=== PATIENT | female | born 1940 | race American Indian/Alaskan Native ===

== ENCOUNTER 2017-04-17 10:53 | Outpatient (CLI) | payer MEDICARE ==
[2017-04-17] MEDS ORDERED: XYLOCAINE TOPICAL 4% TP ONE ×3 (12:19→12:57)
[2017-04-17] MEDS ORDERED: XYLOCAINE 1% 20 mL ONE (12:49)
== END 2017-04-17 10:54 | disposition home or self-care (01) ==
LOC: WOUND 10:53
PROVIDERS: ATTEND Nurse Practitioner
DX: I87.313 Chronic venous hypertension (idiopathic) with ulcer of bilateral lower extremity (principal); L97.321 Non-pressure chronic ulcer of left ankle limited to breakdown of skin; L97.311 Non-pressure chronic ulcer of right ankle limited to breakdown of skin; I70.213 Atherosclerosis of native arteries of extremities with intermittent claudication, bilateral legs; Z90.710 Acquired absence of both cervix and uterus; Z98.62 Peripheral vascular angioplasty status; Z85.9 Personal history of malignant neoplasm, unspecified; Z87.891 Personal history of nicotine dependence
CPT/HCPCS: 11042; 11045; G0463

== ENCOUNTER 2017-04-24 08:03 | Outpatient (CLI) | payer MEDICARE | END 2017-04-24 08:04 | disposition home or self-care (01) | LOC: WOUND 08:03 | PROVIDERS: ATTEND Surgery | DX: I87.2 Venous insufficiency (chronic) (peripheral) (principal); L97.321 Non-pressure chronic ulcer of left ankle limited to breakdown of skin; L97.311 Non-pressure chronic ulcer of right ankle limited to breakdown of skin; I10 Essential (primary) hypertension; Z85.828 Personal history of other malignant neoplasm of skin; Z87.891 Personal history of nicotine dependence; Z90.710 Acquired absence of both cervix and uterus; Z98.62 Peripheral vascular angioplasty status | CPT/HCPCS: 29580 ==

== ENCOUNTER 2017-05-01 08:02 | Outpatient (CLI) | payer MEDICARE ==
[2017-05-01] MEDS ORDERED: XYLOCAINE TOPICAL 4% TP ONE ×2 (08:49→08:57)
== END 2017-05-01 08:03 | disposition home or self-care (01) ==
LOC: WOUND 08:02
PROVIDERS: ATTEND Nurse Practitioner
DX: I87.313 Chronic venous hypertension (idiopathic) with ulcer of bilateral lower extremity (principal); I70.213 Atherosclerosis of native arteries of extremities with intermittent claudication, bilateral legs; L97.321 Non-pressure chronic ulcer of left ankle limited to breakdown of skin; L97.311 Non-pressure chronic ulcer of right ankle limited to breakdown of skin; Z85.9 Personal history of malignant neoplasm, unspecified; Z90.710 Acquired absence of both cervix and uterus; Z98.62 Peripheral vascular angioplasty status; Z87.891 Personal history of nicotine dependence

== ENCOUNTER 2017-05-08 08:26 | Outpatient (CLI) | payer MEDICARE ==
[2017-05-08] MEDS ORDERED: XYLOCAINE TOPICAL 4% TP ONE ×2 (09:09→09:11)
[2017-05-08] MEDS ORDERED: XYLOCAINE TOPICAL 2% TP ONE (09:11)
== END 2017-05-08 08:27 | disposition home or self-care (01) ==
LOC: WOUND 08:26
PROVIDERS: ATTEND Nurse Practitioner
DX: I87.313 Chronic venous hypertension (idiopathic) with ulcer of bilateral lower extremity (principal); L97.321 Non-pressure chronic ulcer of left ankle limited to breakdown of skin; L97.311 Non-pressure chronic ulcer of right ankle limited to breakdown of skin; I70.213 Atherosclerosis of native arteries of extremities with intermittent claudication, bilateral legs; Z85.9 Personal history of malignant neoplasm, unspecified; Z90.710 Acquired absence of both cervix and uterus; Z98.62 Peripheral vascular angioplasty status

== ENCOUNTER 2017-05-15 08:44 | Outpatient (CLI) | payer MEDICARE ==
[2017-05-15] MEDS ORDERED: XYLOCAINE TOPICAL 4% TP ONE (09:18)
== END 2017-05-15 08:45 | disposition home or self-care (01) ==
LOC: WOUND 08:44
PROVIDERS: ATTEND Nurse Practitioner
DX: I87.313 Chronic venous hypertension (idiopathic) with ulcer of bilateral lower extremity (principal); L97.321 Non-pressure chronic ulcer of left ankle limited to breakdown of skin; L97.311 Non-pressure chronic ulcer of right ankle limited to breakdown of skin; L84 Corns and callosities; M79.671 Pain in right foot; Z85.9 Personal history of malignant neoplasm, unspecified; Z90.710 Acquired absence of both cervix and uterus; Z98.62 Peripheral vascular angioplasty status
CPT/HCPCS: 11055

== ENCOUNTER 2017-05-22 07:55 | Outpatient (CLI) | payer MEDICARE ==
[2017-05-22] MEDS ORDERED: XYLOCAINE TOPICAL 4% TP ONE ×3 (08:34→09:15)
== END 2017-05-22 07:56 | disposition home or self-care (01) ==
LOC: WOUND 07:55
PROVIDERS: ATTEND Nurse Practitioner
DX: I87.313 Chronic venous hypertension (idiopathic) with ulcer of bilateral lower extremity (principal); L97.321 Non-pressure chronic ulcer of left ankle limited to breakdown of skin; L97.311 Non-pressure chronic ulcer of right ankle limited to breakdown of skin; I70.213 Atherosclerosis of native arteries of extremities with intermittent claudication, bilateral legs; Z85.9 Personal history of malignant neoplasm, unspecified; Z90.710 Acquired absence of both cervix and uterus; Z98.62 Peripheral vascular angioplasty status; Z87.891 Personal history of nicotine dependence

== ENCOUNTER 2017-05-29 09:06 | Outpatient (CLI) | payer MEDICARE ==
[2017-05-29] MEDS ORDERED: XYLOCAINE TOPICAL 4% TP ONE (09:17)
== END 2017-05-29 09:07 | disposition home or self-care (01) ==
LOC: WOUND 09:06
PROVIDERS: ATTEND Nurse Practitioner
DX: I87.313 Chronic venous hypertension (idiopathic) with ulcer of bilateral lower extremity (principal); L97.321 Non-pressure chronic ulcer of left ankle limited to breakdown of skin; L97.311 Non-pressure chronic ulcer of right ankle limited to breakdown of skin; I70.213 Atherosclerosis of native arteries of extremities with intermittent claudication, bilateral legs; Z85.9 Personal history of malignant neoplasm, unspecified; Z87.891 Personal history of nicotine dependence

== ENCOUNTER 2017-06-05 08:20 | Outpatient (CLI) | payer MEDICARE ==
[2017-06-05] MEDS ORDERED: XYLOCAINE TOPICAL 4% TP ONE (09:00)
== END 2017-06-05 08:21 | disposition home or self-care (01) ==
LOC: WOUND 08:20
PROVIDERS: ATTEND Nurse Practitioner
DX: I70.213 Atherosclerosis of native arteries of extremities with intermittent claudication, bilateral legs (principal); I87.313 Chronic venous hypertension (idiopathic) with ulcer of bilateral lower extremity; L97.321 Non-pressure chronic ulcer of left ankle limited to breakdown of skin; L97.311 Non-pressure chronic ulcer of right ankle limited to breakdown of skin; E03.9 Hypothyroidism, unspecified; Z85.9 Personal history of malignant neoplasm, unspecified; Z90.710 Acquired absence of both cervix and uterus; Z98.62 Peripheral vascular angioplasty status; Z87.891 Personal history of nicotine dependence

== ENCOUNTER 2017-06-12 08:16 | Outpatient (CLI) | payer MEDICARE ==
[2017-06-12] MEDS ORDERED: XYLOCAINE TOPICAL 4% TP ONE (08:36)
== END 2017-06-12 08:17 | disposition home or self-care (01) ==
LOC: WOUND 08:16
PROVIDERS: ATTEND Nurse Practitioner
DX: I87.313 Chronic venous hypertension (idiopathic) with ulcer of bilateral lower extremity (principal); I70.213 Atherosclerosis of native arteries of extremities with intermittent claudication, bilateral legs; L97.821 Non-pressure chronic ulcer of other part of left lower leg limited to breakdown of skin; L97.811 Non-pressure chronic ulcer of other part of right lower leg limited to breakdown of skin; E03.9 Hypothyroidism, unspecified; Z85.9 Personal history of malignant neoplasm, unspecified; Z90.710 Acquired absence of both cervix and uterus; Z98.62 Peripheral vascular angioplasty status; Z87.891 Personal history of nicotine dependence

== ENCOUNTER 2017-06-19 07:58 | Outpatient (CLI) | payer MEDICARE ==
[2017-06-19] MEDS ORDERED: XYLOCAINE TOPICAL 4% TP ONE ×2 (08:09→08:10)
== END 2017-06-19 07:59 | disposition home or self-care (01) ==
LOC: WOUND 07:58
PROVIDERS: ATTEND Nurse Practitioner
DX: I87.313 Chronic venous hypertension (idiopathic) with ulcer of bilateral lower extremity (principal); L97.821 Non-pressure chronic ulcer of other part of left lower leg limited to breakdown of skin; L97.811 Non-pressure chronic ulcer of other part of right lower leg limited to breakdown of skin; I70.213 Atherosclerosis of native arteries of extremities with intermittent claudication, bilateral legs; E03.9 Hypothyroidism, unspecified; Z85.9 Personal history of malignant neoplasm, unspecified; Z90.710 Acquired absence of both cervix and uterus; Z98.62 Peripheral vascular angioplasty status; Z87.891 Personal history of nicotine dependence

== ENCOUNTER 2017-06-26 07:57 | Outpatient (CLI) | payer MEDICARE ==
[2017-06-26] MEDS ORDERED: XYLOCAINE TOPICAL 4% TP ONE ×2 (08:23→09:00)
== END 2017-06-26 07:58 | disposition home or self-care (01) ==
LOC: WOUND 07:57
PROVIDERS: ATTEND Nurse Practitioner
DX: I87.313 Chronic venous hypertension (idiopathic) with ulcer of bilateral lower extremity (principal); L97.321 Non-pressure chronic ulcer of left ankle limited to breakdown of skin; L97.311 Non-pressure chronic ulcer of right ankle limited to breakdown of skin; I70.213 Atherosclerosis of native arteries of extremities with intermittent claudication, bilateral legs; I87.2 Venous insufficiency (chronic) (peripheral); I10 Essential (primary) hypertension; E03.9 Hypothyroidism, unspecified; Z90.710 Acquired absence of both cervix and uterus; Z85.828 Personal history of other malignant neoplasm of skin; Z98.62 Peripheral vascular angioplasty status; Z87.891 Personal history of nicotine dependence

== ENCOUNTER 2017-07-03 08:10 | Outpatient (CLI) | payer MEDICARE | END 2017-07-03 08:11 | disposition home or self-care (01) | LOC: WOUND 08:10 | PROVIDERS: ATTEND Nurse Practitioner | DX: I87.313 Chronic venous hypertension (idiopathic) with ulcer of bilateral lower extremity (principal); L97.321 Non-pressure chronic ulcer of left ankle limited to breakdown of skin; L97.311 Non-pressure chronic ulcer of right ankle limited to breakdown of skin; I70.213 Atherosclerosis of native arteries of extremities with intermittent claudication, bilateral legs; E03.9 Hypothyroidism, unspecified; Z85.9 Personal history of malignant neoplasm, unspecified; Z90.710 Acquired absence of both cervix and uterus; Z98.62 Peripheral vascular angioplasty status; Z87.891 Personal history of nicotine dependence | CPT/HCPCS: 29580 ==

== ENCOUNTER 2017-07-10 09:36 | Outpatient (CLI) | payer MEDICARE ==
[2017-07-10] MEDS ORDERED: XYLOCAINE TOPICAL 4% TP ONE ×2 (10:21→10:46)
== END 2017-07-10 09:37 | disposition home or self-care (01) ==
LOC: WOUND 09:36
PROVIDERS: ATTEND Nurse Practitioner
DX: I87.312 Chronic venous hypertension (idiopathic) with ulcer of left lower extremity (principal); L97.321 Non-pressure chronic ulcer of left ankle limited to breakdown of skin; I70.213 Atherosclerosis of native arteries of extremities with intermittent claudication, bilateral legs; E03.9 Hypothyroidism, unspecified; Z85.9 Personal history of malignant neoplasm, unspecified; Z90.710 Acquired absence of both cervix and uterus; Z98.62 Peripheral vascular angioplasty status; Z87.891 Personal history of nicotine dependence

== ENCOUNTER 2017-07-24 09:15 | Outpatient (CLI) | payer MEDICARE ==
[2017-07-24] MEDS ORDERED: XYLOCAINE TOPICAL 4% TP ONE ×2 (09:25→09:47)
== END 2017-07-24 09:16 | disposition home or self-care (01) ==
LOC: WOUND 09:15
PROVIDERS: ATTEND Nurse Practitioner
DX: I87.313 Chronic venous hypertension (idiopathic) with ulcer of bilateral lower extremity (principal); L97.821 Non-pressure chronic ulcer of other part of left lower leg limited to breakdown of skin; L97.811 Non-pressure chronic ulcer of other part of right lower leg limited to breakdown of skin; L97.321 Non-pressure chronic ulcer of left ankle limited to breakdown of skin; I87.2 Venous insufficiency (chronic) (peripheral); I70.213 Atherosclerosis of native arteries of extremities with intermittent claudication, bilateral legs; E03.9 Hypothyroidism, unspecified; Z85.828 Personal history of other malignant neoplasm of skin
CPT/HCPCS: 11719

== ENCOUNTER 2017-07-31 08:42 | Outpatient (CLI) | payer MEDICARE ==
[2017-07-31] MEDS ORDERED: XYLOCAINE TOPICAL 4% TP ONE (08:55)
== END 2017-07-31 08:43 | disposition home or self-care (01) ==
LOC: WOUND 08:42
PROVIDERS: ATTEND Nurse Practitioner
DX: I87.313 Chronic venous hypertension (idiopathic) with ulcer of bilateral lower extremity (principal); L97.321 Non-pressure chronic ulcer of left ankle limited to breakdown of skin; L97.311 Non-pressure chronic ulcer of right ankle limited to breakdown of skin; E03.9 Hypothyroidism, unspecified; Z85.9 Personal history of malignant neoplasm, unspecified; Z90.710 Acquired absence of both cervix and uterus; Z87.891 Personal history of nicotine dependence

== ENCOUNTER 2017-08-14 09:14 | Outpatient (CLI) | payer MEDICARE ==
[2017-08-14] MEDS ORDERED: XYLOCAINE TOPICAL 4% TP ONE (11:03)
== END 2017-08-14 09:15 | disposition home or self-care (01) ==
LOC: WOUND 09:14
PROVIDERS: ATTEND Nurse Practitioner
DX: I87.313 Chronic venous hypertension (idiopathic) with ulcer of bilateral lower extremity (principal); I70.213 Atherosclerosis of native arteries of extremities with intermittent claudication, bilateral legs; L97.321 Non-pressure chronic ulcer of left ankle limited to breakdown of skin; L97.311 Non-pressure chronic ulcer of right ankle limited to breakdown of skin; E03.9 Hypothyroidism, unspecified; Z85.9 Personal history of malignant neoplasm, unspecified; Z90.710 Acquired absence of both cervix and uterus; Z98.62 Peripheral vascular angioplasty status; Z87.891 Personal history of nicotine dependence

== ENCOUNTER 2017-08-28 09:10 | Outpatient (CLI) | payer MEDICARE ==
[2017-08-28] MEDS ORDERED: XYLOCAINE TOPICAL 4% TP ONE ×2 (09:28→09:31)
== END 2017-08-28 09:11 | disposition home or self-care (01) ==
LOC: WOUND 09:10
PROVIDERS: ATTEND Nurse Practitioner
DX: I87.312 Chronic venous hypertension (idiopathic) with ulcer of left lower extremity (principal); L97.321 Non-pressure chronic ulcer of left ankle limited to breakdown of skin; E03.9 Hypothyroidism, unspecified; I70.213 Atherosclerosis of native arteries of extremities with intermittent claudication, bilateral legs; Z85.9 Personal history of malignant neoplasm, unspecified; Z90.710 Acquired absence of both cervix and uterus; Z87.891 Personal history of nicotine dependence
CPT/HCPCS: 99215; G0463